=== PATIENT | female | born 1940 | race Caucasian/White ===

== ENCOUNTER → 2021-02-07 | Outpatient (CLI) | payer MEDICARE, OTHER ==
--- NOTE | 2021-02-07 14:07 | RAD ---
AP and Lateral Views of the Chest 02/07/2021 1:44 PM Indication: Reason: CHEST PAIN/PNEUMONIA / Spl. Instructions: / History: Comparison: None Findings: Heart size is normal. Aortic calcification noted. No focal infiltrate is seen. No pneumotho rax or pleural effusion is seen. Mild elevation of left hemidiaphragm noted. Surgical changes left ax illa noted. IMPRESSION: No evidence of acute cardiopulmonary process is identified Electronically signed by: Norris Dasilva MD (02/07/2021 2:05 PM) [id number]
--- NOTE | 2021-02-07 15:38 | RAD ---
EXAM: XR BILATERAL HIP (WITH OR WITHOUT PELVIS) 2 VIEWS_RIGHT 02/07/2021 1:44 PM CLINICAL INDICATION: Right hip pain COMPARISON: None TECHNIQUE: 3 views of the right hip and pelvis FINDINGS: There is no acute fracture. There are minimal degenerative changes of the hips without leeann nt space narrowing. Pubic symphysis and sacroiliac joints are normal. There is scoliosis and degenera tive disc disease in the visualized lumbar spine. There are several calcifications in the pelvis whic h may be calcified fibroids or phleboliths. IMPRESSION: 1. No acute osseous abnormality. 2. 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 3. Lower lumbar degenerative disease and scoliosis. Electronically signed by: Rosalva Burris MD (02/07/2021 3:36 PM) [id number]
== END ==
LOC: RAD 13:37
PROVIDERS: ATTEND Family Medicine
DX: M16.0 Bilateral primary osteoarthritis of hip (principal); M41.86 Other forms of scoliosis, lumbar region; M51.36 Other intervertebral disc degeneration, lumbar region; J18.8 Other pneumonia, unspecified organism; I70.0 Atherosclerosis of aorta
CPT/HCPCS: 71046; 73502

== ENCOUNTER → 2021-05-14 | Outpatient (CLI) | payer MEDICARE, OTHER ==
--- NOTE | 2021-05-15 08:19 | RAD ---
CT THORAX WO, CT RIGHT UPPER EXTREMITY WO History: Chronic cough. Right shoulder pain. Comparison: Chest x-ray 02/07/2021. Technique: Noncontrast CT of the chest. Noncontrast CT of the right shoulder. Findings: Assessment is limited by lack of IV contrast. CT chest- Cardiovascular: Mild ascending aortic ectasia measuring 3.8 cm at the level of the pulmonary trunk. M oderate atherosclerotic calcification. Normal heart size. Mild coronary artery calcification. Mediastinum and supa: Calcified mediastinal lymph nodes. No enlarged adenopathy. Normal esophagus and trachea. Airways, lungs and pleura: Mild bronchial wall thickening. The airways are patent. Multifocal areas o f linear atelectasis. Solid pulmonary nodule right upper lobe measuring 5 mm diameter (axial image 38 ). Subpleural nodule anterior left upper lobe measuring 3 mm diameter (axial 40). No effusion or pneu mothorax. Upper abdomen: 1 cm benign hepatic cyst or biliary hamartoma. Punctate calcifications in the spleen. Osseous structures and soft tissues: Bilateral axillary surgical clips. Left mastectomy changes. Dege nerative changes of the left costomanubrial joint. Lower thoracic spondylosis. CT right shoulder- Osseous mineralization is normal. No fracture or dislocation. The glenohumeral joint and acromioclavi cular joint are normally aligned. There are mild degenerative changes of the acromioclavicular joint with subchondral cystic change. Mild degenerative changes of the humeral head and glenoid with tiny m arginal osteophytes. Mild volume loss and atrophy of the supraspinatus muscle. The subacromial space is preserved without evidence of chronic full-thickness tear. Right axillary surgical clips. Impression: 1. Mild bronchial wall thickening may indicate chronic bronchitis. 2. Right upper lobe 5 mm pulmonary nodule. Recommend follow-up according to 2017 Fleischner Society Guidelines for solid pulmonary nodules: <6 mm: In a low risk patient, no routine follow-up. In a high risk patient (history of smoking or other known risk factors), optional CT at 12 months. Certain fani tents with suspicious nodule morphology, upper lobe location, or both may warrant 12-month follow-up. 3. Mild degenerative changes of the right shoulder with mild supraspinatus atrophy. ------ Exposure: One or more of the following individualized dose reduction techniques were utilized for thi s examination: 1. Automated exposure control 2. Adjustment of the mA and/or kV according to patient size 3. Use of iterative reconstruction technique. Electronically signed by: Anant Welch MD (05/15/2021 8:17 AM) [facility]
== END ==
LOC: CT 14:51
PROVIDERS: ATTEND Family Medicine
DX: J98.09 Other diseases of bronchus, not elsewhere classified (principal); R91.8 Other nonspecific abnormal finding of lung field; J98.11 Atelectasis; I25.10 Atherosclerotic heart disease of native coronary artery without angina pectoris; I77.819 Aortic ectasia, unspecified site; I89.8 Other specified noninfective disorders of lymphatic vessels and lymph nodes; D73.89 Other diseases of spleen; K76.89 Other specified diseases of liver; M47.814 Spondylosis without myelopathy or radiculopathy, thoracic region; M19.011 Primary osteoarthritis, right shoulder; M25.811 Other specified joint disorders, right shoulder; Z90.12 Acquired absence of left breast and nipple
CPT/HCPCS: 71250; 73200

== ENCOUNTER → 2021-08-06 | Outpatient (CLI) | payer MEDICARE, OTHER ==
[2021-08-06 14:13] LABS: BASO % 1 % (0-3); EOS # 0.2 x10^3/uL (0.0-0.7); EOS % 4 % (0-3); HEMATOCRIT 43.7 % (36.0-47.0); HEMOGLOBIN 14.7 g/dL (12.0-15.5); LYMPH # 1.1 x10^3/uL (1.0-4.8); LYMPH % 18 % (24-48); MEAN CORPUSCULAR HEMOGLOBIN 34 pg (25-35); MEAN CORPUSCULAR HGB CONC 34 g/dL (31-37); MEAN CORPUSCULAR VOLUME 100 fL (79-100); MONO # 0.6 x10^3/uL (0.0-1.1); MONO % 10 % (0-9); NEUT # 4.3 x10^3uL (1.8-7.7); NEUT % 68 % (31-73); PLATELET COUNT 165 x10^3/uL (140-400); RED BLOOD COUNT 4.38 x10^6/uL (3.50-5.40); RED CELL DISTRIBUTION WIDTH 12.8 % (11.5-14.5); WHITE BLOOD COUNT 6.3 x10^3/uL (4.0-11.0)
--- NOTE | 2021-08-06 16:28 | RAD ---
XR CHEST 2V History: Reason: Productive cough. / Spl. Instructions: / History: Comparison: Two-view chest February 07, 2021. Findings: Atherosclerotic thoracic aorta. The cardiac size is normal. Pulmonary vasculature is borderline promi nent but does not appear congested. No acute airspace disease. Stable mild elevation of left hemidiap hragm. No pleural effusion or pneumothorax is seen. There is no acute bone abnormality. Left axillary surgical clips. IMPRESSION: No acute cardiopulmonary process. Electronically signed by: Alberto Matos MD (08/06/2021 4:25 PM) [id number]
== END ==
LOC: RAD 13:43
PROVIDERS: ATTEND Family Medicine
DX: R05.9 Cough, unspecified (principal); I70.0 Atherosclerosis of aorta
CPT/HCPCS: 36415; 71046; 85025

== ENCOUNTER → 2021-08-19 | Outpatient (CLI) | payer MEDICARE, OTHER ==
[~2021-08-19] MED LIST: IOHEXOL 240 MG/ML 50ML VIAL. ONE; IOHEXOL 300 MG/ML 75 ML VIAL. IV ONE
--- NOTE | 2021-08-20 08:53 | RAD ---
CT of the chest, abdomen, and pelvis 08/19/2021 INDICATION: Fever of unknown origin x3 weeks. History of left breast cancer. COMPARISON STUDY: CT of the chest May 14, 2021. CT of the abdomen and pelvis August 21, 2008. TECHNIQUE: Multidetector CT imaging of the chest, abdomen, and pelvis was performed following the adm inistration of IV contrast. FINDINGS: Chest: There is a 4 mm triangular nodule right lower lobe (axial image 34), stable from comparison study. Th ere is a 2 mm noncalcified nodule in the superior portion of the left lower lobe, also unchanged (axi al image 23). Scarring in the right upper lobe is similar. No pneumothorax, pleural effusion, or acute appearing in filtrate is identified. Left mastectomy noted. Postoperative changes in the left axilla noted. No sig nificant pericardial effusion is identified. Heart size is normal. Coronary calcification noted. No p athologically enlarged mediastinal adenopathy is identified. Abdomen pelvis: Mild central biliary dilatation is seen, nonspecific, most likely age-related. The gallbladder is unr emarkable. Small cyst seen in the right liver measuring 1 cm in diameter. Spleen is unremarkable. The adrenal glands are unremarkable. Pancreas is unremarkable. Renal cortical defects noted in the left possibly chronic infarcts or other insults. No nephrolithiasis or significant hydronephrosis is ident ified. Small parapelvic cyst is seen in the inferior aspect of the right kidney measuring 1.4 cm. The kidneys are otherwise unremarkable. Diffuse atherosclerotic vascular disease is seen. No aneurysm is identified. There are multiple small lymph nodes noted abdominal aorta. These are not pathologically enlarged by size criterion somewhat prominent in regards to number. Bladder is grossly unremarkable. No free flui d or free air is seen in the abdomen or pelvis. The appendix is unremarkable. Degenerative changes th oracic and lumbar spine are seen without evidence of acute osseous abnormality. Impression: 1. No evidence of acute cardiopulmonary process. Stable appearance of subcentimeter pulmonary nodules as described. Recommend follow-up CT in one year to ensure two-year stability. 2. Multiple small lymph nodes adjacent to the abdominal aorta, not pathologically enlarged by size cr iteria, but somewhat prominent in number. Findings may be reactive. A lymphoproliferative process is considered less likely but not excluded. 3 month follow-up CT scan of the abdomen and pelvis with con trast recommended. 3. Mild prominence of the biliary tree, likely senescent in nature. Consider correlation with serum b ilirubin levels. CT DOSING PQRS STATEMENT: One or more of the following individualized dose reduction techniques were utilized for this examinat ion: 1. Automated exposure control 2. Adjustment of the mA and/or kV according to patient size 3. Use of iterative reconstruction technique Electronically signed by: Norris Dasilva MD (08/20/2021 8:51 AM) [id number]
== END ==
LOC: CT 09:19
PROVIDERS: ATTEND Specialist
DX: R50.9 Fever, unspecified (principal); J98.4 Other disorders of lung; I25.10 Atherosclerotic heart disease of native coronary artery without angina pectoris; K76.89 Other specified diseases of liver; Z98.890 Other specified postprocedural states
CPT/HCPCS: 71260; 74177; Q9967

== ENCOUNTER → 2021-10-02 | Day surgery (SDC) | payer MEDICARE, OTHER ==
[~2021-10-02] MED LIST changes: +BUPIVACAINE MPF 0.25% 10 ML VIAL. ONE; +DEXAMETHASONE SOD PHOS 10 MG/ML VIAL. ONE; -IOHEXOL 240 MG/ML 50ML VIAL. ONE; +IOHEXOL 300 MG/ML 50 ML VIAL. ONE; -IOHEXOL 300 MG/ML 75 ML VIAL. IV ONE; +LIDOCAINE 1% PF 30 ML VIAL. ONE
[2021-10-02 12:34] VITALS: BP 150/67
== END | disposition home or self-care (01) ==
LOC: SURG 11:29
PROVIDERS: ATTEND Anesthesiology
DX: M54.16 Radiculopathy, lumbar region (principal); I10 Essential (primary) hypertension; M48.061 Spinal stenosis, lumbar region without neurogenic claudication; M51.36 Other intervertebral disc degeneration, lumbar region; M43.16 Spondylolisthesis, lumbar region; I25.10 Atherosclerotic heart disease of native coronary artery without angina pectoris; Z85.3 Personal history of malignant neoplasm of breast; Z79.899 Other long term (current) drug therapy; Z88.8 Allergy status to other drugs, medicaments and biological substances; Z90.12 Acquired absence of left breast and nipple; Z98.890 Other specified postprocedural states; Z87.01 Personal history of pneumonia (recurrent)
CPT/HCPCS: 64483; 64484; A4209; A4657; A4930; J1100; J3490; Q9967